=== PATIENT | male | born 1965 | race Caucasian/White ===

== ENCOUNTER → 2017-11-12 | Outpatient (CLI) | payer OTHER ==
[2017-11-12 09:43] LABS: BASO # 0.1 10*3/uL (0.0-0.1); BASO % 1.1 % (0.0-1.0); EOS # 0.2 10*3/uL (0.0-0.4); EOS % 3.3 % (1.0-4.0); HEMATOCRIT 47.1 % (42.0-52.0); HEMOGLOBIN 16.8 g/dl (14.0-18.0); LYMPH % 29.7 % (27.0-41.0); MEAN CELL VOLUME 90.2 fl (80.0-94.0); MEAN CORPUSCULAR HGB 32.2 pg (27.0-31.0); MEAN CORPUSCULAR HGB CONC 35.7 g/dl (33.0-37.0); MEAN PLATELET VOLUME 9.2 fl (9.6-12.3); MONO # 0.6 10*3/uL (0.1-1.0); MONO % 9.5 % (3.0-9.0); NEUT # 3.7 10*3/uL (2.3-7.9); NEUT % 55.8 % (47.0-73.0); PLATELET COUNT AUTOMATED 156 10*3/uL (130-400); RED BLOOD COUNT 5.22 10*6/uL (4.50-5.90); RED CELL DISTRI WIDTH 12.1 % (0-14.5); WHITE BLOOD COUNT 6.6 10*3/uL (4.8-10.8)
[2017-11-12 09:55] LABS: BUN 17 mg/dl (7-24); CHLORIDE 109 mmol/L (98-107); CHOLESTEROL 208 mg/dL (<200); CREATININE 1.19 mg/dL (0.70-1.30); SGOT/AST 26 IU/L (3-35); SGPT/ALT 49 U/L (12-78); SODIUM 142 mmol/L (136-145); TOTAL PROTEIN 7.1 gm/dL (6.4-8.2); TRIGLYCERIDES 164 mg/dl (<150); VLDL CHOLESTEROL 33 mg/dL (6-40)
[2017-11-12 10:03] LABS: ALKALINE PHOSPHATASE 71 U/L (45-117); HDL CHOLESTEROL 29 mg/dl (40-60); LDL CHOLESTEROL 146 mg/dL (9-159)
== END | disposition home or self-care (01) ==
LOC: LAB 09:04
PROVIDERS: Nurse Practitioner Primary Care
DX: Z12.5 Encounter for screening for malignant neoplasm of prostate (principal); N40.1 Benign prostatic hyperplasia with lower urinary tract symptoms; Z68.28 Body mass index [BMI] 28.0-28.9, adult

== ENCOUNTER → 2018-04-22 | Day surgery (SDC) | payer OTHER ==
[~2018-04-22] VITALS: Ht 180.3 cm; Wt 86.2 kg
[~2018-04-22] MED LIST: ARICEPT10 M1 PO; ASPIRIN81 M1 PO; CHANTIX1 M1 PO; FLOMAX0.4 MG PO; LIPITOR10 MG PO; NATURE'S BLEND F1 MG PO; NORCO 5-325 TA1 EACH PO; ONE DAILY1 EACH PO; WELLBUTRIN SR150 MG PO
--- NOTE | ~2018-04-22 | PROC NOTE ---
[place], [place] PROCEDURE NOTE NAME: IVANIA INGRAM UNIT #: [id number] ROOM: DOCTOR: VITO HAYES MD BIRTHDATE: [birth year] DOS: 04/22/2018 PREOPERATIVE DIAGNOSIS: Left chest nonfunctional loop monitor. POSTOPERATIVE DIAGNOSIS: Left chest nonfunctional loop monitor. PROCEDURE: Removal of left anterior chest wall loop monitor. SURGEON: Vito Hayes MD INTERLOCKER MAINTAINER: COLIN. ANESTHESIA: MAC with local. INDICATIONS: This is a 53-year-old gentleman who has a nonfunctional left chest wall loop monitor and he is here for its removal. The procedure and its complications were explained to the patient in detail preoperatively. Complications that were discussed included, but were not limited to bleeding, infection, hematoma/seroma/abscess formation and prolonged pain. He agreed to proceed. DESCRIPTION OF PROCEDURE: After identifying the patient, the patient was brought to the operating suite and laid in the supine position. After IV sedation was administered, a timeout procedure was called and the parts were painted and draped in the usual sterile fashion. An incision was marked and 1% plain lidocaine was injected in the line of the incision. Incision was made and deepened in layers until the loop on it was reached. The capsule was incised and the monitor was removed in its entirety and sent for histopathological diagnosis. Hemostasis was achieved with the help of electrocautery. Thereafter, the subcutaneous tissue was irrigated and approximated in 2 layers with the help of interrupted 3-0 Vicryl. The skin edges approximated with the help of 4-0 Vicryl in a subcuticular running fashion. Dressing was placed. The patient tolerated the procedure well and was brought back to the recovery in a stable fashion. There were no complications. Dr. Vito Hayes, the attending surgeon, was present throughout the operating case. Vito Hayes MD CM:PROCNOTE:PROCEDURE NOTE 1 44 VITO HAYES MD
[2018-04-22 06:48] VITALS: BP 128/91
[2018-04-22 08:00] VITALS: BP 115/72
[2018-04-22 08:15] VITALS: BP 108/76
[2018-04-22 08:28] VITALS: BP 113/79
== END | disposition home or self-care (01) ==
LOC: SDC 04-21 08:00
DX: Z45.09 Encounter for adjustment and management of other cardiac device (principal); E78.5 Hyperlipidemia, unspecified; F17.210 Nicotine dependence, cigarettes, uncomplicated; Z98.890 Other specified postprocedural states; Z86.73 Personal history of transient ischemic attack (TIA), and cerebral infarction without residual deficits; Z85.828 Personal history of other malignant neoplasm of skin; Z79.899 Other long term (current) drug therapy; Z79.82 Long term (current) use of aspirin

== ENCOUNTER → 2018-05-04 | Outpatient (CLI) | payer OTHER | END | disposition home or self-care (01) | LOC: MRI 10:28 | DX: K11.8 Other diseases of salivary glands (principal); K11.1 Hypertrophy of salivary gland ==

== ENCOUNTER → 2018-07-19 | Outpatient (CLI) | payer OTHER | END | disposition home or self-care (01) | LOC: CT 15:53 | DX: N20.0 Calculus of kidney (principal); N28.89 Other specified disorders of kidney and ureter ==

== ENCOUNTER 2018-07-22 13:33 | Emergency (ER) | payer OTHER ==
[~2018-07-22] VITALS: Ht 180.3 cm; Wt 95.3 kg
[2018-07-22 14:03] LABS: BASO # 0.1 10*3/uL (0.0-0.1); BASO % 0.9 % (0.0-1.0); EOS # 0.2 10*3/uL (0.0-0.4); EOS % 2.1 % (1.0-4.0); HEMATOCRIT 46.7 % (42.0-52.0); HEMOGLOBIN 16.8 g/dl (14.0-18.0); LYMPH # 2.2 10*3/uL (1.3-4.4); LYMPH % 23.6 % (27.0-41.0); MEAN CELL VOLUME 89.5 fl (80.0-94.0); MEAN CORPUSCULAR HGB 32.2 pg (27.0-31.0); MEAN PLATELET VOLUME 9.7 fl (9.6-12.3); MONO # 0.8 10*3/uL (0.1-1.0); MONO % 8.2 % (3.0-9.0); NEUT # 5.9 10*3/uL (2.3-7.9); NEUT % 64.1 % (47.0-73.0); PLATELET COUNT AUTOMATED 154 10*3/uL (130-400); RED BLOOD COUNT 5.22 10*6/uL (4.50-5.90); WHITE BLOOD COUNT 9.1 10*3/uL (4.8-10.8)
[2018-07-22 14:25] LABS: BUN 16 mg/dl (7-24); CHLORIDE 107 mmol/L (98-107); CREATININE 1.26 mg/dL (0.70-1.30); POTASSIUM 5.1 mmol/L (3.5-5.1); SGOT/AST 62 IU/L (3-35); SGPT/ALT 94 U/L (12-78); SODIUM 139 mmol/L (136-145); TOTAL PROTEIN 7.4 gm/dL (6.4-8.2)
[2018-07-22 14:30] LABS: ALKALINE PHOSPHATASE 63 U/L (45-117)
[2018-07-22 15:06] LABS: BILIRUBIN 1+ (NEGATIVE); BLOOD 3+ (NEGATIVE); CLARITY CLOUDY (CLEAR); COLOR YELLOW (YELLOW); GLUCOSE NEGATIVE (NEGATIVE); KETONE NEGATIVE (NEGATIVE); SPECIFIC GRAVITY 1.025 (1.005-1.030)
[2018-07-22 15:07] LABS: BACTERIA 1+; CALCIUM OXALATE CRYSTALS 1+; LEUKO ESTERASE 1+ (NEGATIVE); NITRITE NEGATIVE (NEGATIVE); PH 6.5 (5.0-9.0); RBC TNTC rbc/hpf (0-2); UROBILINOGEN 0.2 E.U./dl (0.2-1.0)
[2018-07-22 15:08] LABS: MUCOUS TRACE
== END 2018-07-22 17:30 ==
LOC: ED 13:33
PROVIDERS: Nurse Practitioner Family
DX: N20.0 Calculus of kidney (principal); Z98.890 Other specified postprocedural states; Z79.899 Other long term (current) drug therapy; Z79.82 Long term (current) use of aspirin; Z86.73 Personal history of transient ischemic attack (TIA), and cerebral infarction without residual deficits

== ENCOUNTER → 2018-07-27 | Outpatient (CLI) | payer OTHER | END | disposition home or self-care (01) | LOC: RAD 10:38 | DX: N20.0 Calculus of kidney (principal) ==

== ENCOUNTER → 2018-08-10 | Outpatient (CLI) | payer OTHER ==
[2018-08-10 12:59] LABS: BASO # 0.1 10*3/uL (0.0-0.1); BASO % 0.9 % (0.0-1.0); EOS # 0.2 10*3/uL (0.0-0.4); EOS % 2.6 % (1.0-4.0); HEMATOCRIT 43.2 % (42.0-52.0); HEMOGLOBIN 15.4 g/dl (14.0-18.0); LYMPH % 22.7 % (27.0-41.0); MEAN CELL VOLUME 91.3 fl (80.0-94.0); MEAN CORPUSCULAR HGB 32.6 pg (27.0-31.0); MEAN CORPUSCULAR HGB CONC 35.6 g/dl (33.0-37.0); MEAN PLATELET VOLUME 9.2 fl (9.6-12.3); MONO # 0.7 10*3/uL (0.1-1.0); MONO % 8.1 % (3.0-9.0); NEUT # 5.7 10*3/uL (2.3-7.9); NEUT % 65.2 % (47.0-73.0); PLATELET COUNT AUTOMATED 190 10*3/uL (130-400); RED BLOOD COUNT 4.73 10*6/uL (4.50-5.90); WHITE BLOOD COUNT 8.7 10*3/uL (4.8-10.8)
[2018-08-10 13:12] LABS: BUN 14 mg/dl (7-24); CHLORIDE 106 mmol/L (98-107); POTASSIUM 4.2 mmol/L (3.5-5.1); SGOT/AST 30 IU/L (3-35); SGPT/ALT 53 U/L (12-78); SODIUM 137 mmol/L (136-145)
[2018-08-10 13:13] LABS: BILIRUBIN 2+ (NEGATIVE); BLOOD 3+ (NEGATIVE); CLARITY TURBID (CLEAR); COLOR BROWN (YELLOW); GLUCOSE NEGATIVE (NEGATIVE); KETONE TRACE (NEGATIVE); NITRITE POSITIVE (NEGATIVE); PH 6.5 (5.0-9.0); SPECIFIC GRAVITY >= 1.030 (1.005-1.030)
[2018-08-10 13:15] LABS: ALKALINE PHOSPHATASE 77 U/L (45-117); CREATININE 1.29 mg/dL (0.70-1.30); T3 UPTAKE 32 % (31-39); THYROXINE (T4) TOTAL 12.5 ug/dl (4.5-12.1); TOTAL PROTEIN 7.1 gm/dL (6.4-8.2)
[2018-08-10 13:42] LABS: BACTERIA 2+; CALCIUM OXALATE CRYSTALS 2+; LEUKO ESTERASE 1+ (NEGATIVE); RBC TNTC rbc/hpf (0-2); WBC TNTC wbc/hpf (0-5)
== END | disposition home or self-care (01) ==
LOC: LAB 12:16
PROVIDERS: Nurse Practitioner Family
DX: N20.0 Calculus of kidney (principal)

== ENCOUNTER → 2018-08-12 | Outpatient (CLI) | payer OTHER ==
[2018-08-22 10:39] LABS: BUSHITE 0.25 ratio (0.00-3.00); CALCIUM OXALATE 3.87 ratio (0.00-6.00); CALCIUM, URINE 211.7 mg/24 hr (100.0-300.0); CALCIUM, URINE 7.3 mg/dL (Not Estab.); CITRIC ACID (CITRATE) 334 mg/24 hr (320-1240); CREATININE, URINE 1745.8 mg/24 hr (1000.0-2000.0); CREATININE, URINE 60.2 mg/dL (Not Estab.); MAGNESIUM, URINE 3.4 mg/dL (Not Estab.); OSMOLALITY, URINE 250 (300-900); SODIUM, URINE 154 (58-337); SODIUM, URINE 53 mmol/L (Not Estab.); STRUVITE 0.01 ratio (0.00-1.00); URIC ACID 1.47 ratio (0.00-1.20); pH 24 HR URINE 5.6 (.)
== END | disposition home or self-care (01) ==
LOC: LAB 11:37
PROVIDERS: Urology
DX: E83.50 Unspecified disorder of calcium metabolism (principal)

== ENCOUNTER → 2018-08-22 | Outpatient (CLI) | payer OTHER | END | disposition home or self-care (01) | LOC: US 04:55 | DX: N20.0 Calculus of kidney (principal) ==

== ENCOUNTER → 2018-09-14 | Outpatient (CLI) | payer OTHER ==
[2018-09-15 08:10] LABS: PROSTATE SPECIFIC AG FREE 0.51 ng/mL; PROSTATE SPECIFIC AG, SERUM 2.2 ng/mL (0.0-4.0)
== END | disposition home or self-care (01) ==
LOC: LAB 13:29
PROVIDERS: Nurse Practitioner Family
DX: D40.0 Neoplasm of uncertain behavior of prostate (principal)

== ENCOUNTER → 2019-03-17 | Outpatient (CLI) | payer OTHER | END | disposition home or self-care (01) | LOC: LAB 08:26 | DX: E78.5 Hyperlipidemia, unspecified (principal); K11.8 Other diseases of salivary glands ==

== ENCOUNTER → 2022-09-28 | Day surgery (SDC) | payer OTHER ==
[~2022-09-28] VITALS: Ht 180.3 cm; Wt 99.8 kg
[~2022-09-28] MED LIST changes: +WELLBUTRIN XL150 MG PO
[2022-09-28 08:10] VITALS: BP 125/74
[2022-09-28 08:34] VITALS: BP 106/69
[2022-09-28 08:50] VITALS: BP 108/74
[2022-09-28 09:05] VITALS: BP 105/70
== END | disposition home or self-care (01) ==
LOC: SDC 09-24 12:30
PROVIDERS: ATTEND Surgery
DX: Z12.11 Encounter for screening for malignant neoplasm of colon (principal); K57.30 Diverticulosis of large intestine without perforation or abscess without bleeding; D12.3 Benign neoplasm of transverse colon; F32.9 Major depressive disorder, single episode, unspecified; Z86.73 Personal history of transient ischemic attack (TIA), and cerebral infarction without residual deficits; Z85.828 Personal history of other malignant neoplasm of skin; Z79.82 Long term (current) use of aspirin; Z79.899 Other long term (current) drug therapy